=== PATIENT | male | born 1970 | race Caucasian/White ===

== ENCOUNTER 2019-10-16 07:15 | Inpatient (IN) | payer SELFPAY ==
[~2019-10-16 07:15] MED LIST: Buffered Lidocaine 1% SYRIN* 1 ML/SYRINGE INTRADERM ONE; Lactated Ringers 1000 ML Bag* 1,000 ML IV SCH
[2019-10-16] MEDS ORDERED: ceFAZolin 2 GM PREMIX in ORs 2 GM/50 ML BAG ONE (07:50)
[2019-10-16] MEDS ORDERED: Dexamethasone IV* 4 MG/ML 1 ML (4 MG) ONE (07:50)
[2019-10-16] MEDS ORDERED: Scopolamine 1.5 mg* PATCH ONE (07:50)
[2019-10-16] MEDS ORDERED: Ondansetron INJ* 2 MG/ML VIAL ONE (07:50)
[2019-10-16] MEDS ORDERED: fentaNYL* 50 MCG/ML 5 ML VIAL (250 MCG VIAL) ONE (08:09)
[2019-10-16] MEDS ORDERED: Midazolam* 1 MG/ML 2 ML VIAL (2 MG) ONE (08:09)
[2019-10-16] MEDS ORDERED: Rocuronium* 10 MG/ML VIAL ONE ×4 (08:22→12:29)
[2019-10-16] MEDS ORDERED: Acetaminophen IV 1GM/100ML * 100 ML ONE (08:22)
[2019-10-16] MEDS ORDERED: Glycopyrrolate IV* 0.2 MG/ML 1 ML VIAL ONE (08:22)
[2019-10-16] MEDS ORDERED: Propofol* 10 MG/ML 20 ML BTL ONE (08:22)
[2019-10-16] MEDS ORDERED: Bupivacaine 0.25% SDV* 30 ML ONE (10:01)
[2019-10-16] MEDS ORDERED: Methylene Blue 0.5 %* 50 MG/10 ML AMP IV ONE (10:01)
[2019-10-16] MEDS ORDERED: EPHEDrine (Pressors)* 50 MG/ML VIAL ONE ×2 (10:44)
[2019-10-16] MEDS ORDERED: Sevoflurane* BOTTLE ONE (12:03)
[2019-10-16] MEDS ORDERED: fentaNYL* 50 MCG/ML 2 ML VIAL (100 MCG VIAL) IV PRN (12:05)
[2019-10-16] MEDS ORDERED: Naloxone* 0.4 MG/ML 1 ML VIAL IV PRN (12:05)
[2019-10-16] MEDS ORDERED: Phenylephrine 40 MCG/ML SYRINGE ONE (12:06)
[2019-10-16] MEDS ORDERED: Sugammadex * 200 MG/2 ML VIAL IV PUSH ONE (12:43)
[2019-10-16] MEDS ORDERED: fentaNYL* 50 MCG/ML 2 ML VIAL (100 MCG VIAL) ONE (13:36)
[2019-10-16] MEDS ORDERED: Acetaminophen TAB* 325 MG PO PRN (13:58)
[2019-10-16] MEDS ORDERED: Ondansetron INJ* 2 MG/ML VIAL IV PRN (13:58)
[2019-10-16] MEDS ORDERED: Magnesium Hydroxide LIQ* 30 ML UDC PO PRN (13:58)
[2019-10-16] MEDS ORDERED: Al Hydrox/Mg Hydrox/Simet LIQ* 30 ML UDC PO PRN (13:58)
[2019-10-16] MEDS ORDERED: HYDROcodone/ACETAMIN 5-325 MG* 1 TAB PO PRN (13:58)
[2019-10-16] MEDS ORDERED: NS 0.9% 1000 ML** 1,000 ML IV SCH (14:00)
[2019-10-16] MEDS ORDERED: HYDROmorphone INJ* 0.5 MG/0.5 ML SYRINGE IV SLOW PU PRN (14:04)
[2019-10-16] MEDS ORDERED: diPHENhydraMINE PO* 25 MG PO PRN (14:06)
[2019-10-16] MEDS ORDERED: Ibuprofen TAB* 400 MG PO PRN (15:46)
[2019-10-16] MEDS: HYDROcodone/ACETAMIN 5-325 MG* 1 TAB PO PRN (17:37)
[2019-10-16] MEDS: Docusate CAP* 100 MG PO SCH (21:46)
[2019-10-17] MEDS: HYDROcodone/ACETAMIN 5-325 MG* 1 TAB PO PRN (03:53)
[2019-10-17] MEDS ORDERED: Ibuprofen TAB* 200 MG PO PRN (08:10)
--- NOTE | 2019-10-17 08:10 | PN ---
Progress Note - Progress Note Date of Service: 10/17/19 SOAP: Discharge Note Subjective: Feeling well. Pain well controlled. Ambulating well. Objective: Afebrile. VSS. Abdomen flat. VAC dressing dry and intact. Moderate serosanguinous SILVERIO drainage. Assessment: Doing well POD#1 Plan:Discharge Discharge. Instructions given. Followup in my office in 5 days.
[2019-10-17] MEDS ORDERED: Multivitamins/Minerals TAB PO SCH (09:00)
[2019-10-17] MEDS ORDERED: Losartan TAB* 25 MG PO SCH (09:00)
[2019-10-17] MEDS ORDERED: Allopurinol TAB* 100 MG PO SCH ×2 (09:00)
[2019-10-17] MEDS: Docusate CAP* 100 MG PO SCH (09:22)
[2019-10-17 10:13] VITALS: BP 113/64
--- NOTE | 2019-10-23 13:33 | DCNOTE ---
At the request of medical records, I am adding an addendum to my discharge progress note dated 10/17/2019, to clarify that the patient was discharged home in good condition,
== END 2019-10-17 10:13 | disposition home or self-care (01) | DRG 581 ==
LOC: AA 07:15 → SSU 13:58
PROVIDERS: ADMIT Plastic Surgery; ATTEND Plastic Surgery
PROC: 0W0F0ZZ Alteration of Abdominal Wall, Open Approach (ICD-10-PCS; principal; 2019-10-16 09:15)
DX: Z41.1 Encounter for cosmetic surgery (principal); L57.4 Cutis laxa senilis; I10 Essential (primary) hypertension; M10.9 Gout, unspecified; Z87.891 Personal history of nicotine dependence
CPT/HCPCS: A9270-GY; A9272-GY; J0690; J1100; J2250; J2405; J2704; J3010; J3490